=== PATIENT | male | born 1950 ===

== ENCOUNTER 2016-11-06 16:05 | Emergency (ER) | payer OTHER ==
[~2016-11-06] VITALS: Ht 167.6 cm; Wt 113.4 kg
[2016-11-06 16:25] VITALS: BP 144/94
--- NOTE | 2016-11-06 17:49 | ED ANIMAL BITE/WOUND CHECK ---
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 DOG IS NEIGHBORS DOG AND HE IS UNSURE IF HE IS UP TO DATE ON SHOTS. UNSURE OF LAST TETANUS. Triage Nurses Notes Reviewed? yes Onset: Abrupt Duration: hour(s):, constant, continues in ED Timing: recent history Injury Environment: home Is Injury an Animal Bite? No Animal Type: dog Appearance of Animal: appeared well No Modifying Factors: none HPI: 66-year-old male comes into emergency room with complaints of dog bites and scratches. Patient was attacked by a neighbor's dog. Dog is up-to-date on its rabies vaccines. Patient is up-to-date on his tetanus shot. Patient has injury to below his lip, right side of back, and right elbow. Denies any other associated symptoms. Past History Travel History Traveled to [place] past 21 day No Medical History Any Pertinent Medical History? 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 No Review of Systems Review of Systems Constitutional: Reports: no symptoms. EENTM: Reports: no symptoms. Respiratory: Reports: no symptoms. Cardiovascular: Reports: no symptoms. GI: Reports: no symptoms. Genitourinary: Reports: no symptoms. Musculoskeletal: Reports: see HPI. Skin: Reports: see HPI. Neurological/Psychological: Reports: no symptoms. Hematologic/Endocrine: Reports: no symptoms. Immunologic/Allergic: Reports: no symptoms. All Other Systems: Reviewed and Negative Physical Exam Physical Exam General Appearance: well developed/nourished, mild distress Head: atraumatic Eyes: Bilateral: normal appearance, EOMI. Ears, Nose, Throat: normal ENT inspection, hearing grossly normal Neck: normal inspection Respiratory: no respiratory distress Back: normal inspection Extremities: normal range of motion Neurologic/Psych: awake, alert, oriented x 3, normal mood/affect Skin: intact, normal color, warm/dry, skin abrasion to right elbow, skin abrasion to right flank, small superficial cut below left lip, Lymphatic: no anterior cervical rogers Progress Differential Diagnosis: abscess, cellulitis, joint infection, tenosysnovitis Plan of Care: see below Departure Departure Disposition: HOME OR SELF CARE Condition: Stable Clinical Impression Primary Impression: Skin abrasion Secondary Impressions: Dog scratch Referrals: UNKNOWN (PCP/Family) Additional Instructions: Take Augmentin as prescribed. Return if any signs of infection such as redness or discharge fever chills. Please go over all results of today's visit with your primary care doctor. Contact your primary care doctor to let them know you were here in the emergency room. There may be nonspecific findings which may not be related to your visit today here in the emergency room but may require further evaluation and chronic monitoring by your primary care doctor. If you had a laceration today the chance of foreign body always remains. You should follow-up with your primary care doctor for recheck in 3-5 days for a wound check. If you had an x-ray done there is a chance that a fracture could have been missed on initial read and you should follow-up with your primary care doctor for repeat x-rays if symptoms persist. If your blood pressure was elevated here in the emergency room please have rechecked by her primary care doctor within the next 48 hours by your primary care doctor. If you were prescribed a narcotic here in the emergency room or any type of controlled substances you're not allowed to drive while taking this medication or operate any type of heavy machinery. Narcotics can make you feel lightheaded dizziness nausea and can cause constipation. You may need to brain picker a stool softener. Thank you for choosing emergency room. Please return to the emergency room immediately if you have any other concerns worsening of symptoms. Departure Forms: Customer Survey General Discharge Information Prescriptions: Current Visit Scripts Amoxicillin/Potassium Clav (Augmentin 875-125 Tablet) 1 TAB PO BID #20 TAB Comments 11/06/2016 8:01:53 PM Patient clinically looks well. Nontoxic-appearing. In no apparent distress. Nothing suturable on exam. Patient started on Augmentin. Return if any other concerns.
[2016-11-06] MEDS ORDERED: AUGMENTIN 875-1 EACH PO (17:54)
== END 2016-11-06 17:59 ==
LOC: ERH 16:05
DX: S50.311A Abrasion of right elbow, initial encounter (principal); S30.811A Abrasion of abdominal wall, initial encounter; S00.511A Abrasion of lip, initial encounter; W54.0XXA Bitten by dog, initial encounter; Y93.9 Activity, unspecified; Y92.9 Unspecified place or not applicable